=== PATIENT | male | born 1995 | race Caucasian/White ===

== ENCOUNTER 2017-09-17 22:57 | Emergency (ER) | payer OTHER ==
[2017-09-17] MEDS ORDERED: OXYCODONE/APAP 5/325 TAB PO ONE (23:10)
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
[2017-09-18] MEDS ORDERED: OXYCODONE/APAP 5/325MG PREPACK#4 BTL TAKEHOME ONE (00:20)
[2017-09-18 00:31] VITALS: BP 121/66
== END 2017-09-18 00:30 | disposition home or self-care (01) ==
DX: S52.124A Nondisplaced fracture of head of right radius, initial encounter for closed fracture (principal); V18.0XXA Pedal cycle driver injured in noncollision transport accident in nontraffic accident, initial encounter; Y99.8 Other external cause status; Y93.55 Activity, bike riding
CPT/HCPCS: A4565